=== PATIENT | male | born 1990 | race Hispanic/Latino ===

== ENCOUNTER → 2017-09-24 | Outpatient (CLI) | payer OTHER ==
--- NOTE | 2017-09-24 16:54 | Diagnostic Imaging Report ---
TECHNIQUE: Magnetic resonance imaging of the LEFT RING FINGER was performed WITHOUT injected contrast. Exehld-kr-lvcsa ratio on the sagittal STIR limits the evaluation. HISTORY: Jammed finger, basketball injury, pain, query rupture of ligament COMPARISON: None available FINDINGS: BONES: Mild bone marrow edema, most notably at the dorsal base of the distal phalanx of the ring finger. Subtle hypointense lines in this region may reflect associated fracture(s). Apparent mild volar subluxation of the distal phalanx. JOINTS: Mild synovitis of the distal interphalangeal joint of the ring finger. SOFT TISSUES: The collateral ligaments are intact. On series 13 image 6, the extensor mechanism at the level of the distal interphalangeal joint appears disrupted, but given the stated limitation, it is unclear if this is due to tendinous and/or osseous avulsion. IMPRESSION: Findings suggestive of a ring finger mallet finger deformity, recommend correlate with physical exam and radiographs. Signed by: Dr. Tony Wright D.O., M.M.M. on 09/24/2017 4:51 PM
== END ==
LOC: MRI 14:58
PROVIDERS: ATTEND Family Medicine
DX: S63.639A Sprain of interphalangeal joint of unspecified finger, initial encounter (principal)